=== PATIENT | male | born 1950 | race Caucasian/White ===

== ENCOUNTER → 2019-08-10 | Outpatient (CLI) | payer OTHER ==
--- NOTE | 2019-08-13 11:18 | PE ---
EXAMINATION TYPE: PET CT fusion skull to thigh DATE OF EXAM: 08/10/2019 COMPARISON: Prior outside PET/CT April 16, 2019. HISTORY: Lung cancer diagnosed last year with surgery, recently completed chemotherapy and radiation treatment. TECHNIQUE: Following the intravenous administration of 10.94 mCi of F-18 FDG, whole body images are performed from the skull base to the midthigh. Images are reviewed on the computer in the coronal, a xial, and sagittal planes. Reconstructed rotating images are created on independent workstation and reviewed on the computer. A noncontrast CT is performed in conjunction with the PET scan. SCAN: Subsequent Scan FINDINGS: SKULL BASE AND NECK: No new suspicious areas of abnormal hypermetabolic uptake. CHEST, MEDIASTINUM, AND HILAR REGION: Evidence of right-sided volume loss with posterior area of mass like pleural thickening extending inferiorly anteriorly along the fissure without abnormal suspicious hypermetabolic uptake (Max SUV greater than 2.5), findings favor product of posttreatment change. No suspicious areas of abnormal hypermetabolic uptake. ABDOMEN AND PELVIS: No areas of suspicious abnormal hypermetabolic uptake. No suspicious adrenal mass es. OSSEOUS STRUCTURES: No areas of suspicious abnormal hypermetabolic uptake. OTHER CT: Stable right internal jugular Mediport catheter. Coronary artery calcification redemonstrat ed which is noted marked of underlying coronary artery disease. Small degree of bilateral subareolar nodular gynecomastia redemonstrated. Multilevel spurring in the spine. Mild/moderate calcified plaque of the abdominal aorta extends into branch vessels. Old minimally Fracture of the posterior-lateral right sixth rib is redemonstrated. IMPRESSION: No MRI evidence for active local or metastatic malignancy. Posttreatment changes right renetta ng identified.
== END | disposition home or self-care (01) ==
LOC: RADPETMAIN 13:20
PROVIDERS: ATTEND Physician Assistant
DX: C34.2 Malignant neoplasm of middle lobe, bronchus or lung (principal)
CPT/HCPCS: 78815; A9552

== ENCOUNTER → 2019-11-23 | Outpatient (CLI) | payer OTHER ==
--- NOTE | 2019-11-23 14:52 | PE ---
Nuclear medicine PET/CT HISTORY: Lung carcinoma, subsequent Patient received 12 mCi F-18 FDG intravenously in delayed scanning was performed from the skull base to the mid thighs. Localization and attenuation correction CT scan was performed. Correlation to prior PET/CT 08/10/2019 Chest and neck: There is no supraclavicular or cervical adenopathy. Right jugular central venous cath eter courses into the cavoatrial junction level. Port is present in the right pectoral region. There is no mediastinal, axillary, or hilar adenopathy. Coronary artery calcifications are again seen. No p leural pericardial effusion. Left lung is unremarkable. Some atelectatic lung present along the right middle lobe region similar to prior exam. No suspicious uptake present. Unilateral uptake along the left vocal cord is question, correlate for vocal cord paralysis. Uptake present along the base of the tongue thought likely to be physiologic. ABDOMEN: There is no adrenal mass. No suspicious uptake. No ascites or liver mass is evident. Atherom atous change present along the aorta iliac distribution. Probable postop changes along anterior abdom inal wall are again noted, probable scarring. Possible right inguinal hernia present. No pelvic adeno traci. Osseous structures are stable. IMPRESSION: No suspicious uptake.
== END | disposition home or self-care (01) ==
LOC: RADPETMAIN 07:55
PROVIDERS: ATTEND Physician Assistant
DX: C34.2 Malignant neoplasm of middle lobe, bronchus or lung (principal)
CPT/HCPCS: 78815; A9552

== ENCOUNTER 2020-01-08 00:43 | Inpatient (IN) | payer OTHER, MEDICARE ==
[2020-01-08] MEDS ORDERED: PNEUMONIA PROTOCOL UTILIZED 1 EACH MISC PO PRN (00:52)
[2020-01-08] MEDS ORDERED: IPRATROPIUM-ALBUTEROL 3 ML NEB INHALATION PRN (00:52)
--- NOTE | 2020-01-08 00:57 | ED ---
SOB HPI - General Chief Complaint: Shortness of Breath Stated Complaint: sob Time Seen by Provider: 01/08/20 00:45 Source: patient, EMS, RN notes reviewed, old records reviewed Mode of arrival: EMS Limitations: no limitations - History of Present Illness Initial Comments: This is a 61-year-old male who is accepted in transfer, patient is a knownhistory of high blood pressure, he presented to [facility] shortness of breath and that his been persistent for this patient. Otherwise he is no travel history or sick contacts, he states he was tested negative for coronavirus. No current chest pain. No fevers.patient does have history of lung cancer going through radiation MD Complaint: shortness of breath, cough -: days(s) Radiation: back Severity: moderate Severity scale (1-10): 4 Quality: aching, throbbing Consistency: intermittent Improves With: nothing Worsens With: nothing Known History Of: other (Lung CA) Context: anxiety Associated Symptoms: denies other symptoms - Related Data Home Medications Medication Instructions Recorded Confirmed Acetaminophen Tab [Tylenol Tab] 650 mg PO Q4H PRN MDD 6TABS 12/10/15 12/10/15 Buprenorphine HCl/Naloxone HCl 1 film SL ONCE 12/10/15 12/10/15 [Suboxone 4 mg-1 mg Sl Film] Calcium Carb/Magnesium Hydrox 1 tab PO TID PRN 12/10/15 12/10/15 [Rolaids Chewable Tablet] Chlorpheniramine Maleate 4 mg PO Q4H PRN 12/10/15 12/10/15 [Chlor-Trimeton] LORazepam [Ativan] 1 - 2 mg PO DIRECTED 12/10/15 12/10/15 Multivitamin [Men's Multi-Vitamin] 1 tab PO DAILY 12/10/15 12/10/15 Mylanta 30 ml PO Q4H PRN 12/10/15 12/10/15 Ondansetron HCl [Zofran] 8 mg PO Q6H PRN 12/10/15 12/10/15 Thiamine [Vitamin B-1] 100 mg PO DAILY 12/10/15 12/10/15 Zofran 4mg Im 4 mg IM Q6H PRN 12/10/15 12/10/15 busPIRone HCl [Buspar] 10 mg PO TID PRN 12/10/15 12/10/15 traZODone HCL 50 - 150 mg PO HS 12/10/15 12/10/15 Previous Rx's Medication Instructions Recorded Omeprazole [PriLOSEC] 40 mg PO AC-TERESITAKFST #14 capsule. 12/11/15 traMADol HCL [Ultram] 50 mg PO Q4HR PRN #30 tab 12/11/15 Allergies Allergy/AdvReac Type Severity Reaction Status Date / Time No Known Allergies Allergy Verified 12/11/15 01:08 Review of Systems ROS Statement: Those systems with pertinent positive or pertinent negative responses have been documented in the HPI. ROS Other: All systems not noted in ROS Statement are negative. Past Medical History Past Medical History: Hypertension, Osteoarthritis (OA), Pneumonia, Prostate Disorder Additional Past Medical History / Comment(s): Hep C, Emphysema History of Any Multi-Drug Resistant Organisms: None Reported Past Surgical History: Appendectomy, Tonsillectomy Additional Past Surgical History / Comment(s): fusion rt. tibia-chronic ankle pain, rt. elbow injury repaired Past Anesthesia/Blood Transfusion Reactions: No Reported Reaction Past Psychological History: No Psychological Hx Reported, Bipolar Smoking Status: Former smoker Past Alcohol Use History: None Reported Past Drug Use History: None Reported - Past Family History Mother Family Medical History: Coronary Artery Disease (CAD), Hypertension Father Family Medical History: Cancer Additional Family Medical History / Comment(s): Bone and lung CA Brother(s) Family Medical History: Cancer Additional Family Medical History / Comment(s): pancreatic CA General Exam Limitations: no limitations General appearance: alert, in no apparent distress, anxious Head exam: Present: atraumatic, normocephalic, normal inspection Eye exam: Present: normal appearance, PERRL, EOMI. Absent: scleral icterus, conjunctival injection, periorbital swelling ENT exam: Present: normal exam, mucous membranes moist Neck exam: Present: normal inspection. Absent: tenderness, meningismus, lymphadenopathy Respiratory exam: Present: normal lung sounds bilaterally. Absent: respiratory distress, wheezes, rales, rhonchi, stridor Cardiovascular Exam: Present: regular rate, normal rhythm, normal heart sounds. Absent: systolic murmur, diastolic murmur, rubs, gallop, clicks GI/Abdominal exam: Present: soft, normal bowel sounds. Absent: distended, tenderness, guarding, rebound, rigid Extremities exam: Present: normal inspection, full ROM, normal capillary refill. Absent: tenderness, pedal edema, joint swelling, calf tenderness Back exam: Present: normal inspection Neurological exam: Present: alert, oriented X3, CN II-XII intact Psychiatric exam: Present: normal affect, normal mood Skin exam: Present: warm, dry, intact, normal color. Absent: rash Course Vital Signs 01/08/20 00:46 Temperature 98.2 F Pulse Rate 83 Respiratory 20 Rate Blood Pressure 127/79 O2 Sat by Pulse 95 Oximetry - Reevaluation(s) Reevaluation #1: 01/08/20 01:01 medical records reviewed 01/08/20 01:01 transferring paperwork has been reviewed Reevaluation #2: 01/08/20 01:02 patient is no significant distress currently - Consultations Consultation #1: spoke with [facility] who agrees to admit the patient Medical Decision Making - Medical Decision Making 69 male to the ER for evaluation of shortness of breath patient does have pneumonia/pneumonitis, CTa negative for PE, COVID rapid negative - Radiology Data Radiology results: report reviewed (CTA on an outpatient basis is negative for PE and positive for pneumonia), image reviewed Disposition Clinical Impression: Community acquired pneumonia, Pneumonitis Disposition: ADMITTED IP TO THIS [facility] Condition: Good Is patient prescribed a controlled substance at d/c from ED?: No Referrals: None,Stated [Primary Care Provider] - 1-2 days
[2020-01-08] MEDS ORDERED: MORPHINE SULFATE 4 MG/ML SYRINGE IVP STA (01:04)
[2020-01-08] MEDS: MORPHINE SULFATE 4 MG/ML SYRINGE IVP PRN ×2 (07:31→11:57)
[2020-01-08] MEDS: ENOXAPARIN 40 MG/0.4 ML SYRINGE SQ SCH (07:32)
[2020-01-08] MEDS ORDERED: IPRATROPIUM-ALBUTEROL 3 ML NEB INHALATION SCH (08:00)
[2020-01-08 10:52] LABS: Basophils % (A) 1 %; Eosinophils # (A) 0.1 k/uL (0-0.7); Eosinophils % (A) 1 %; HCT 43.8 % (39.0-53.0); HGB 14.1 gm/dL (13.0-17.5); Lymphocytes % (A) 14 %; MCHC 32.1 g/dL (31.0-37.0); MCV 99.7 fL (80.0-100.0); Mean Platelet Volume 6.3; Monocytes # (A) 0.4 k/uL (0-1.0); Monocytes % (A) 6 %; Neutrophils # (A) 5.2 k/uL (1.3-7.7); Neutrophils % (A) 76 %; Platelet Count 338 k/uL (150-450); RBC 4.39 m/uL (4.30-5.90); RDW 14.2 % (11.5-15.5); WBC 6.8 k/uL (3.8-10.6)
[2020-01-08] MEDS ORDERED: traZODone HCL 100 MG TAB PO PRN (12:26)
[2020-01-08] MEDS: SENNOSIDES 8.6 MG TAB PO SCH ×2 (14:02→19:53)
[2020-01-08] MEDS: HYDROcodone/APAP 10-325MG 1 EACH TAB PO PRN ×2 (14:05→19:52)
[2020-01-08] MEDS: methylPREDNISolone SOD SUCCI 125 MG/2 ML VIAL IV SCH ×2 (14:05→17:11)
[2020-01-08] MEDS ORDERED: NYSTATIN 100,000 UNIT/ML SUSP 500,000 UNIT/5 ML CUP PO PRN (14:42)
[2020-01-08] MEDS ORDERED: polyethylene glycoL 3350 17 GM POWD.PACK PO PRN (14:44)
[2020-01-08 15:10] VITALS: BMI 30.5
[2020-01-08 15:10] LABS: African American GFR (CKD) 89.2 (60.0-200.0); Anion Gap 9.2 mmol/L (4.00-12.00); Calcium 8.8 mg/dL (8.7-10.3); Carbon Dioxide 23.8 mmol/L (21.6-31.8); Potassium 4.1 mmol/L (3.5-5.5)
--- NOTE | 2020-01-08 15:42 | P.HPIM ---
History of Present Illness Patient is 69-year-old the male transferred from outside hospital after a friend present at their with pain in the lower thoracic area where he had the pneumonectomy. Patient does have history of COPD he quit smoking. Patient has radiation to the patient had a computed tomography scan of the chest which she showed what appears like radiation pneumonitis. Patient was told he has pneumonia was sent in here patient was started on Rocephin as the mycin. Patient was evaluated by pulmonary here the start him on high-dose of steroids for possible radiation pneumonitis and patient has musculoskeletal chest pain with he had the pneumonectomy and pneumonectomy scar area is painful for the patient patient the is and opiates that is a fentanyl patch as well as oral pain medications. Doesn't have any fever chills doesn't have any leukocytosis, his Covid 19 was negative. Review of Systems REVIEW OF SYSTEMS: CONSTITUTIONAL: No fever, no malaise, no fatigue. HEENT: No recent visual problems or hearing problems. Denied any sore throat. CARDIOVASCULAR: No orthopnea, PND, no palpitations, no syncope. PULMONARY: no hemoptysis. GASTROINTESTINAL: No diarrhea, no nausea, no vomiting, no abdominal pain. NEUROLOGICAL: No headaches, no weakness, no numbness. HEMATOLOGICAL: Denies any bleeding or petechiae. GENITOURINARY: Denies any burning micturition, frequency, or urgency. MUSCULOSKELETAL/RHEUMATOLOGICAL: Denies any joint pain, swelling, or any muscle pain. ENDOCRINE: Denies any polyuria or polydipsia. The rest of the 14-point review of systems is negative. Past Medical History Past Medical History: Cancer (Lung cancer), Hypertension, Osteoarthritis (OA), Pneumonia, Prostate Disorder Additional Past Medical History / Comment(s): Hep C, Emphysema/COPD, lung CA treated with chemo and radiation therapy through [facility] and the patient completed the radiation in 03/2019 and the patient is still on chemo , l ast treatment was 2 weeks ago History of Any Multi-Drug Resistant Organisms: None Reported Past Surgical History: Appendectomy, Tonsillectomy Additional Past Surgical History / Comment(s): fusion rt. tibia-chronic ankle pain, rt. elbow injury repaired Past Anesthesia/Blood Transfusion Reactions: No Reported Reaction Past Psychological History: No Psychological Hx Reported, Bipolar Smoking Status: Former smoker (quit smoker 3 months ago and the patient has smoked 2 PPD for 50 years) Past Alcohol Use History: None Reported Past Drug Use History: None Reported - Past Family History Mother Family Medical History: Coronary Artery Disease (CAD), Hypertension Father Family Medical History: Cancer Additional Family Medical History / Comment(s): Bone and lung CA Brother(s) Family Medical History: Cancer Additional Family Medical History / Comment(s): pancreatic CA Medications and Allergies Home Medications Medication Instructions Recorded Confirmed Type Albuterol Sulfate [Proair Hfa] 1 puff INHALATION RT-Q6H PRN 01/08/20 01/08/20 History Atorvastatin Calcium [Lipitor] 40 mg PO HS 01/08/20 01/08/20 History Budesonide/Formoterol Fumarate 2 puff INHALATION RT-BID 01/08/20 01/08/20 History [Symbicort 80-4.5 Mcg Inhaler] HYDROcodone/APAP 10-325MG [[place] 1 tab PO Q6H PRN 01/08/20 01/08/20 History 10-325] Lactose-Reduced Food [Ensure Plus] 1 can PO BID 01/08/20 01/08/20 History Nystatin 500,000 unit PO Q6H PRN 01/08/20 01/08/20 History Sennosides [Senna] 17.2 mg PO BID 01/08/20 01/08/20 History Tamsulosin HCl [Flomax] 0.4 mg PO HS 01/08/20 01/08/20 History Tiotropium [place] [Spiriva 2 spray INHALATION RT-DAILY 01/08/20 01/08/20 History Respimat] amLODIPine [Norvasc] 10 mg PO DAILY 01/08/20 01/08/20 History fentaNYL 50MCG/HR PATCH [Duragesic 1 patch TRANSDERM Q72H 01/08/20 01/08/20 History 50MCG/HR] traZODone HCL [Desyrel] 100 mg PO HS PRN 01/08/20 01/08/20 History Allergies Allergy/AdvReac Type Severity Reaction Status Date / Time No Known Allergies Allergy Verified 01/08/20 08:12 Physical Exam Vitals: Vital Signs Temp Pulse Pulse Resp BP BP Pulse Ox 01/08/20 08:45 95 01/08/20 07:00 98.2 F 81 16 126/68 93 L 01/08/20 03:11 19 01/08/20 03:07 97.9 F 85 19 116/72 92 L 01/08/20 01:18 98.3 F 86 19 132/72 94 L 01/08/20 00:46 98.2 F 83 20 127/79 95 Intake and Output 01/08/20 01/08/20 01/08/20 06:59 14:59 22:59 Other: Voiding Method Toilet Weight 88.451 kg 88.451 kg PHYSICAL EXAMINATION: GENERAL: The patient is alert and oriented x3, not in any acute distress. Well developed, well nourished. HEENT: Pupils are round and equally reacting to light. EOMI. No scleral icterus. No conjunctival pallor. Normocephalic, atraumatic. No pharyngeal erythema. No thyromegaly. CARDIOVASCULAR: S1 and S2 present. No murmurs, rubs, or gallops. PULMONARY: Significant axillary wheezing with mildly decreased air entry into bilateral lung hartman. ABDOMEN: Soft, nontender, nondistended, normoactive bowel sounds. No palpable organomegaly. MUSCULOSKELETAL: No joint swelling or deformity. EXTREMITIES: No cyanosis, clubbing, or pedal edema. NEUROLOGICAL: Gross neurological examination did not reveal any focal deficits. SKIN: No rashes. Results CBC & Chem 7: 01/08/20 10:06 01/08/20 10:06 Labs: Abnormal Lab Results - Last 24 Hours (Table) 01/08/20 Range/Units 10:06 Glucose 125 H (70-110) mg/dL Thrombosis Risk Factor Assmnt - Choose All That Apply Each Risk Factor Represents 2 Points: Age 61-74 years, Malignancy Thrombosis Risk Factor Assessment Total Risk Factor Score: 4 Thrombosis Risk Factor Assessment Level: Moderate Risk Assessment and Plan Plan: I1 COPD with acute exacerbation continue systemic steroids inhalational treatments. Patient does have radiation pneumonitis as well as to systemic steroids should help. No evidence of bacterial pneumonia at this time, probably will not require any antibiotics upon discharge. -Lung cancer with radiation pneumonitis patient is status post pneumonectomy. We'll increase the dose of fentanyl patch rest of his pain medications will be continued -Hypertension we'll cut down the dose of amlodipine depending on his blood pressures here. Patient is presently receiving radiation and chemotherapy -Benign prostatic hypertrophy -History of hepatitis C -Hyperlipidemia -Due to prophylaxis with Lovenox and GI prophylaxis Pepcid
[2020-01-08] MEDS ORDERED: HEPARIN SODIUM,PORCINE 5,000 UNIT/ML 1 ML VIAL SQ SCH (16:00)
[2020-01-08] MEDS: IPRATROPIUM-ALBUTEROL 3 ML NEB INHALATION SCH ×2 (16:17→20:23)
--- NOTE | 2020-01-08 17:21 | P.CNPUL ---
History of Present Illness Reason for consult: dyspnea, COPD History of present illness: 69-year-old patient with known history of COPD and lung cancer treated through [facility] the [place]. The patient was referred to us for evaluation of chest and shortness of breath. The patient was not found to be a candidate for surgery. He was given a surgical option and at the time of surgery was found to be nonsurgical. The patient was subsequently treated with chemoradiation therapy. He states that he faces radiation back in March 2019 and he was taking chemotherapy up to recently. I do have a PET scan in our system on this patient and this is a follow-up CAT scan that was unintended 2019 and the PET scan showed no evidence of any mediastinal or hilar lymphadenopathy. The left lung was unremarkable. There was some atelectatic changes in the right midlung similar to prior examination. Nevertheless there was no suspicious uptake within the lungs or liver or abdomen or the skeletal system. The patient clinically seems to be in remission. The patient was having chest pain along the right side of the chest and he went to an outside hospital and the patient was told to have a pneumonia and following that the patient was referred to us for further evaluation. Currently the patient on examination Rocephin and Zithromax. The patient also in any acute COPD exacerbation the patient is currently on DuoNeb the right she is around the clock and IV Solu- Medrol. He apparently has chronic skeletal pain and the patient takes fentanyl patch in addition to no cough or pain control. On today's evaluation he has no fever or chills. No leukocytosis. His coronavirus covert 19 testing came back negative. He is currently on room air oxygen with a pulse of 95%. The patient himself is a poor historian. He admits to smoke. He also admits to have COPD and the patient is demented and accommodation of Symbicort and Spiriva on outpatient basis. Review of Systems Eyes: denies as per HPI, denies blurred vision, denies bulging eye, denies decreased vision, denies diplopia, denies discharge, denies dry eye, denies irritation, denies itching, denies pain, denies photophobia, denies loss of peripheral vision, denies loss of vision, denies tunnel vision/blind spots Ears: deny: decreased hearing, ear discharge, earache, tinnitus Ears, nose, mouth and throat: Denies headache, Denies sore throat Breasts: absent: as per HPI, gynecomastia Cardiovascular: Reports decreased exercise tolerance, Reports dyspnea on exertion Respiratory: Reports as per HPI (lung pain), Reports dyspnea Genitourinary: Reports as per HPI Musculoskeletal: Reports as per HPI Musculoskeletal: absent: ankle pain, ankle stiffness, ankle swelling, as per HPI, elbow pain, elbow stiffness, elbow swelling, foot pain, foot stiffness, foot swelling, hand pain, hand stiffness, hand swelling, hip pain, hip stiffness, hip swelling, knee pain, knee stiffness, knee swelling, shoulder pain, shoulder stiffness, shoulder swelling, wrist pain, wrist stiffness, wrist swelling Integumentary: Reports as per HPI Neurological: Reports as per HPI Psychiatric: Reports as per HPI Endocrine: Reports as per HPI Hematologic/Lymphatic: Reports as per HPI Allergic/Immunologic: Reports as per HPI Past Medical History Past Medical History: Cancer (Lung cancer), Hypertension, Osteoarthritis (OA), Pneumonia, Prostate Disorder Additional Past Medical History / Comment(s): Hep C, Emphysema/COPD, lung CA treated with chemo and radiation therapy through [facility] and the patient completed the radiation in 03/2019 and the patient is still on chemo , last treatment was 2 weeks ago History of Any Multi-Drug Resistant Organisms: None Reported Past Surgical History: Appendectomy, Tonsillectomy Additional Past Surgical History / Comment(s): fusion rt. tibia-chronic ankle pain, rt. elbow injury repaired Past Anesthesia/Blood Transfusion Reactions: No Reported Reaction Past Psychological History: No Psychological Hx Reported, Bipolar Smoking Status: Former smoker (quit smoker 3 months ago and the patient has smoked 2 PPD for 50 years) Past Alcohol Use History: None Reported Past Drug Use History: None Reported - Past Family History Mother Family Medical History: Coronary Artery Disease (CAD), Hypertension Father Family Medical History: Cancer Additional Family Medical History / Comment(s): Bone and lung CA Brother(s) Family Medical History: Cancer Additional Family Medical History / Comment(s): pancreatic CA Medications and Allergies Home Medications Medication Instructions Recorded Confirmed Type Albuterol Sulfate [Proair Hfa] 1 puff INHALATION RT-Q6H PRN 01/08/20 01/08/20 History Atorvastatin Calcium [Lipitor] 40 mg PO HS 01/08/20 01/08/20 History Budesonide/Formoterol Fumarate 2 puff INHALATION RT-BID 01/08/20 01/08/20 History [Symbicort 80-4.5 Mcg Inhaler] HYDROcodone/APAP 10-325MG [[place] 1 tab PO Q6H PRN 01/08/20 01/08/20 History 10-325] Lactose-Reduced Food [Ensure Plus] 1 can PO BID 01/08/20 01/08/20 History Nystatin 500,000 unit PO Q6H PRN 01/08/20 01/08/20 History Sennosides [Senna] 17.2 mg PO BID 01/08/20 01/08/20 History Tamsulosin HCl [Flomax] 0.4 mg PO HS 01/08/20 01/08/20 History Tiotropium [place] [Spiriva 2 spray INHALATION RT-DAILY 01/08/20 01/08/20 History Respimat] amLODIPine [Norvasc] 10 mg PO DAILY 01/08/20 01/08/20 History fentaNYL 50MCG/HR PATCH [[place] 1 patch TRANSDERM Q72H 01/08/20 01/08/20 History 50MCG/HR] traZODone HCL [Desyrel] 100 mg PO HS PRN 01/08/20 01/08/20 History Allergies Allergy/AdvReac Type Severity Reaction Status Date / Time No Known Allergies Allergy Verified 01/08/20 08:12 Physical Exam Vitals: Vital Signs Temp Pulse Pulse Resp BP BP Pulse Ox 01/08/20 08:45 95 01/08/20 07:00 98.2 F 81 16 126/68 93 L 01/08/20 03:11 19 01/08/20 03:07 97.9 F 85 19 116/72 92 L 01/08/20 01:18 98.3 F 86 19 132/72 94 L 01/08/20 00:46 98.2 F 83 20 127/79 95 Intake and Output 01/07/20 01/08/20 01/08/20 22:59 06:59 14:59 Other: Voiding Method Toilet Weight 88.451 kg GENERAL: The patient is alert and oriented x3, not in any acute distress. Well developed, well nourished. HEENT: Pupils are round and equally reacting to light. EOMI. No scleral icterus. No conjunctival pallor. Normocephalic, atraumatic. No pharyngeal erythema. No thyromegaly. CARDIOVASCULAR: S1 and S2 present. No murmurs, rubs, or gallops. PULMONARY: Significant axillary wheezing with mildly decreased air entry into bilateral lung hartman. ABDOMEN: Soft, nontender, nondistended, normoactive bowel sounds. No palpable organomegaly. MUSCULOSKELETAL: No joint swelling or deformity. EXTREMITIES: No cyanosis, clubbing, or pedal edema. NEUROLOGICAL: Gross neurological examination did not reveal any focal deficits. Examination of the skin revealed no evidence of significant rashes, suspicious appearing nevi or other concerning lesions. Results - Laboratory Findings CBC and BMP: 01/08/20 10:06 01/08/20 10:06 Assessment and Plan Plan: Assessment 1 acute COPD exacerbation with secondary shortness of breath 2 history of lung cancer exact type and the exact diagnostic and therapeutic circumstances not known to be at this point. The patient was treated with accommodation of chemoradiation therapy. Note that the most recent PET scan that was done November 2019 showed no evidence of any recurrence or active disease of the patient had no abnormalities or increased uptake within the PET scan finding. 3 right lung chronic atelectatic change, probably related to radiation-induced changes to the lungs 4 hypertension 5 previous history of hepatitis C, treated 6 hyperlipidemia 7 smoker 8 BPH 9 chronic pain syndrome and the patient is demented on fentanyl patches on outpatient basis. He claims that this was given to him following his radiation. Plan Obtain records regarding his previous treatment of lung cancer Obtain copies of the CAT scan of the chest that was done outside hospital in upload in our system Repeat chest x-ray Continue Rocephin and Zithromax DuoNeb nebulized treatments around the clock IV Solu Medrol 60 mg every 6 hours Restart the patient is fentanyl usual dose 75 mg every 72 hours in addition to [place] 10 mg every 6 hours on a when necessary basis. Resume home medication We'll continue to follow
[2020-01-08] MEDS: TAMSULOSIN 0.4 MG CAP.ER.24H PO SCH (19:53)
[2020-01-08] MEDS: FAMOTIDINE 20 MG TAB PO SCH (19:53)
[2020-01-08] MEDS: ATORVASTATIN 40 MG TAB PO SCH (19:53)
[2020-01-08] MEDS: BUDESONIDE 0.5 MG/2 ML NEBU INHALATION SCH (20:23)
[2020-01-08] MEDS: FORMOTEROL FUMARATE 20 MCG/2 ML NEBU INHALATION SCH ×2 (20:23→20:30)
[2020-01-09] MEDS: methylPREDNISolone SOD SUCCI 125 MG/2 ML VIAL IV SCH ×4 (00:05→17:10)
[2020-01-09] MEDS: AZITHROMYCIN 500 MG TAB PO SCH (00:06)
--- NOTE | 2020-01-09 07:19 | XR ---
EXAMINATION TYPE: XR chest 2V DATE OF EXAM: 01/09/2020 HISTORY: Shortness of breath. COMPARISON: 12/10/2015 TECHNIQUE: Single view of the chest is submitted. FINDINGS: Demonstrated are scattered senescent parenchymal change. Right perihilar and right lower lobe infiltrate. Correlate clinically for pneumonia and progress stud ies are recommended. The heart is stable. Hilar and mediastinal structures are within normal limits. Degenerative changes are seen of the dorsal spine. IMPRESSION: 1. Right perihilar and right lower lobe infiltrate. Correlate clinically for pneumonia and progress studies are recommended.
[2020-01-09] MEDS: HYDROcodone/APAP 10-325MG 1 EACH TAB PO PRN ×3 (07:24→19:41)
[2020-01-09] MEDS ORDERED: amLODIPine 10 MG TAB PO SCH (09:00)
[2020-01-09] MEDS: SENNOSIDES 8.6 MG TAB PO SCH ×2 (09:05→21:02)
[2020-01-09] MEDS: FAMOTIDINE 20 MG TAB PO SCH ×2 (09:05→21:02)
[2020-01-09] MEDS: ENOXAPARIN 40 MG/0.4 ML SYRINGE SQ SCH (09:07)
[2020-01-09] MEDS: amLODIPine 5 MG TAB PO SCH (09:08)
[2020-01-09] MEDS: IPRATROPIUM-ALBUTEROL 3 ML NEB INHALATION SCH ×4 (09:29→20:23)
[2020-01-09] MEDS: FORMOTEROL FUMARATE 20 MCG/2 ML NEBU INHALATION SCH ×2 (09:29→20:35)
[2020-01-09] MEDS: BUDESONIDE 0.5 MG/2 ML NEBU INHALATION SCH ×2 (09:30→20:23)
--- NOTE | 2020-01-09 15:25 | P.PN ---
Subjective 69-year-old the male transferred from outside hospital after a friend present at their with pain in the lower thoracic area where he had the pneumonectomy. Patient does have history of COPD he quit smoking. Patient has radiation to the patient had a computed tomography scan of the chest which she showed what appears like radiation pneumonitis. Patient was told he has pneumonia was sent in here patient was started on Rocephin as the mycin. Patient was evaluated by pulmonary here the start him on high-dose of steroids for possible radiation pneumonitis and patient has musculoskeletal chest pain with he had the pneumonectomy and pneumonectomy scar area is painful for the patient patient the is and opiates that is a fentanyl patch as well as oral pain medications. Doesn't have any fever chills doesn't have any leukocytosis, his Covid 19 was negative. 01/09 2020 Patient chest x-ray showing perihilar infiltrate this chest x-ray was done today. Patient feels better in his wheezing significantly improved Constitutional: Denied any fatigue denied any fever. Cardio vascular: denied any chest pain, palpitations Gastrointestinal denied any nausea vomiting Pulmonary: As mentioned in interval history. Neurologic denied any new focal deficits All inpatient medications were reviewed and appropriate changes in these medications as dictated in the interval history and assessment and plan. Objective - Vital Signs Vital signs: Vital Signs Temp 99.0 F 01/09/20 15:00 Pulse 76 01/09/20 15:00 Resp 17 01/09/20 15:00 BP 125/65 01/09/20 15:00 Pulse Ox 97 01/09/20 15:00 Intake & Output 01/08/20 01/09/20 01/09/20 18:59 06:59 18:59 Weight 88.451 kg Other: Voiding Method Toilet Toilet Toilet # Voids 4 2 - Exam PHYSICAL EXAMINATION: GENERAL: The patient is alert and oriented x3, not in any acute distress. Well developed, well nourished. HEENT: Pupils are round and equally reacting to light. EOMI. No scleral icterus. No conjunctival pallor. Normocephalic, atraumatic. No pharyngeal erythema. No thyromegaly. CARDIOVASCULAR: S1 and S2 present. No murmurs, rubs, or gallops. PULMONARY: Wheezing significantly improved mild bilateral rhonchi and exam ABDOMEN: Soft, nontender, nondistended, normoactive bowel sounds. No palpable organomegaly. MUSCULOSKELETAL: No joint swelling or deformity. EXTREMITIES: No cyanosis, clubbing, or pedal edema. NEUROLOGICAL: Gross neurological examination did not reveal any focal deficits. SKIN: No rashes. - Labs CBC & Chem 7: 01/08/20 10:06 01/08/20 10:06 Assessment and Plan Plan: I1 COPD with acute exacerbation continue systemic steroids inhalational yonathan tments. Patient does have radiation pneumonitis as well as to systemic steroids should help. Patient has a right lower lobe infiltrate patient is on already on antibiotics will continue possibly of discharge tomorrow -Lung cancer with radiation pneumonitis patient is status post pneumonectomy. controlled today. -Hypertension we'll cut down the dose of amlodipine depending on his blood pre ssures here. Patient is presently receiving radiation and chemotherapy -Benign prostatic hypertrophy -History of hepatitis C -Hyperlipidemia -Due to prophylaxis with Lovenox and GI prophylaxis Pepcid
--- NOTE | 2020-01-09 15:39 | P.PN ---
Subjective Progress Note Date: 01/09/20 Principal diagnosis: Chest pain, shortness of breath 69-year-old patient with known history of COPD and lung cancer treated through [facility] the [place] in [place]. The patient was referred to us for evaluation of chest and shortness of breath. The patient was not found to be a candidate for surgery. He was given a surgical option and at the time of surgery was found to be nonsurgical. The patient was subsequently treated with chemoradiation therapy. He states that he faces radiation back in March 2019 and he was taking chemotherapy up to recently. I do have a PET scan in our system on this patient and this is a follow-up CAT scan that was unintended 2019 and the PET scan showed no evidence of any mediastinal or hilar lymphadenopathy. The left lung was unremarkable. There was some atelectatic changes in the right midlung similar to prior examination. Nevertheless there was no suspicious uptake within the lungs or liver or abdomen or the skeletal system. The patient clinically seems to be in remission. The patient was having chest pain along the right side of the chest and he went to an outside hospital and the patient was told to have a pneumonia and following that the patient was referred to us for further evaluation. Currently the patient on examination Rocephin and Zithromax. The patient also in any acute COPD exacerbation the patient is currently on DuoNeb the right she is around the clock and IV Solu- Medrol. He apparently has chronic skeletal pain and the patient takes fentanyl patch in addition to no cough or pain control. On today's evaluation he has no fever or chills. No leukocytosis. His coronavirus covert 19 testing came back negative. He is currently on room air oxygen with a pulse of 95%. The patient himself is a poor historian. He admits to smoke. He also admits to have COPD and the patient is demented and accommodation of Symbicort and Spiriva on outpatient basis. On 01/09/2020 patient is seen in follow-up on medical surgical floor, he is awake and alert, in no acute distress, denies any shortness of breath, she states his breathing has improved, he is on room air with a pulse ox 97%, he's been afebrile, lung sounds are clear, no rhonchi or wheezing, he states he still has the flank pain, he is on fentanyl patch 75 mics, and oral [place] as. He is on azithromycin and Rocephin for possibility of pulmonary infection, and today's chest x-ray shows right perihilar and right lower lobe infiltrate. His covert 19 testing is being repeated currently. Clinically he looks very stable, he is tolerating ambulation in the room, no complaints of central chest pain, no hemoptysis. No wheezing Objective - Vital Signs Vital signs: Vital Signs Temp 99.0 F 01/09/20 15:00 Pulse 76 01/09/20 15:00 Resp 17 01/09/20 15:00 BP 125/65 01/09/20 15:00 Pulse Ox 97 01/09/20 15:00 Intake & Output 01/08/20 01/09/20 01/09/20 18:59 06:59 18:59 Intake Total 540 Balance 540 Weight 88.451 kg Intake: Oral 540 Other: Voiding Method Toilet Toilet Toilet # Voids 4 2 2 - Exam GENERAL EXAM: Alert, very pleasant, 69-year-old white male, on room air, with a pulse ox 97%, comfortable in no apparent distress. HEAD: Normocephalic/atraumatic. EYES: Normal reaction of pupils, equal size. Conjunctiva pink, sclera white. NOSE: Clear with pink turbinates. THROAT: No erythema or exudates. NECK: No masses, no JVD, no thyroid enlargement, no adenopathy. CHEST: No chest wall deformity. Symmetrical expansion. LUNGS: Equal air entry with no crackles, wheeze, rhonchi or dullness. CVS: Regular rate and rhythm, normal S1 and S2, no gallops, no murmurs, no rubs ABDOMEN: Soft, nontender. No hepatosplenomegaly, normal bowel sounds, no guarding or rigidity. EXTREMITIES: No clubbing, no edema, no cyanosis, 2+ pulses and upper and lower extremities. MUSCULOSKELETAL: Muscle strength and tone normal. SPINE: No scoliosis or deformity SKIN: No rashes CENTRAL NERVOUS SYSTEM: Alert and oriented -3. No focal deficits, tone is normal in all 4 extremities. PSYCHIATRIC: Alert and oriented -3. Appropriate affect. Intact judgment and insight. - Labs CBC & Chem 7: 01/08/20 10:06 01/08/20 10:06 Assessment and Plan Plan: Assessment: 1 acute COPD exacerbation with secondary shortness of breath 2 history of lung cancer exact type and the exact diagnostic and therapeutic circumstances not known to be at this point. The patient was treated with accommodation of chemoradiation therapy. Note that the most recent PET scan that was done November 2019 showed no evidence of any recurrence or active disease of the patient had no abnormalities or increased uptake within the PET scan finding. 3 right lung chronic atelectatic change, probably related to radiation-induced changes to the lungs 4 hypertension 5 previous history of hepatitis C, treated 6 hyperlipidemia 7 smoker 8 BPH 9 chronic pain syndrome and the patient is demented on fentanyl patches on outpatient basis. He claims that this was given to him following his radiation. Plan: Continue current medical treatment, patient clinically is stable, no fever or chills, his shortness of breath has improved, lisinopril calcitonin, Covid 19 PCR is pending, continue IV steroids, we'll continue to follow I performed a history & physical examination of the patient and discussed their management with my nurse practitioner, Jenny De Los Santos. I reviewed the nurse practitioner's note and agree with the documented findings and plan of care. Lung sounds are positive for diminished breath sounds. The findings and the impression was discussed with the patient. I attest to the documentation by the nurse practitioner. Time with Patient: Less than 30
[2020-01-09] MEDS: TAMSULOSIN 0.4 MG CAP.ER.24H PO SCH (21:02)
[2020-01-09] MEDS: ATORVASTATIN 40 MG TAB PO SCH (21:02)
[2020-01-10] MEDS: AZITHROMYCIN 500 MG TAB PO SCH (00:05)
[2020-01-10] MEDS: methylPREDNISolone SOD SUCCI 125 MG/2 ML VIAL IV SCH ×3 (00:05→12:23)
[2020-01-10 03:17] VITALS: RESP 16
[2020-01-10] MEDS: HYDROcodone/APAP 10-325MG 1 EACH TAB PO PRN ×2 (05:44→12:36)
[2020-01-10 07:37] VITALS: BP 133/74; TEMP 97.3
[2020-01-10] MEDS: IPRATROPIUM-ALBUTEROL 3 ML NEB INHALATION SCH ×2 (08:52→12:40)
[2020-01-10] MEDS: FORMOTEROL FUMARATE 20 MCG/2 ML NEBU INHALATION SCH (08:52)
[2020-01-10] MEDS: BUDESONIDE 0.5 MG/2 ML NEBU INHALATION SCH (08:52)
[2020-01-10 08:57] VITALS: PULSE 80
[2020-01-10] MEDS: ENOXAPARIN 40 MG/0.4 ML SYRINGE SQ SCH (10:22)
[2020-01-10] MEDS: FAMOTIDINE 20 MG TAB PO SCH (10:22)
[2020-01-10] MEDS: amLODIPine 5 MG TAB PO SCH (10:22)
[2020-01-10] MEDS: SENNOSIDES 8.6 MG TAB PO SCH (10:23)
--- NOTE | 2020-01-10 14:24 | P.DS ---
Providers Date of admission: 01/08/20 00:52 Attending physician: Merrill Gonzales Consults: 01/08/20 00:52 Consult Physician Routine Consulting Provider: Korey Vazquez Consult Reason/Comments: pna Do you want consulting provider notified?: Yes Primary care physician: Stated None Hospital Course: 69-year-old the male transferred from outside hospital after a friend present at their with pain in the lower thoracic area where he had the pneumonectomy. Patient does have history of COPD he quit smoking. Patient has radiation to the patient had a computed tomography scan of the chest which she showed what appears like radiation pneumonitis. Patient was told he has pneumonia was sent in here patient was started on Rocephin as the mycin. Patient was evaluated by pulmonary here the start him on high-dose of steroids for possible radiation pneumonitis and patient has musculoskeletal chest pain with he had the pneumonectomy and pneumonectomy scar area is painful for the patient patient the is and opiates that is a fentanyl patch as well as oral pain medications. Doesn't have any fever chills doesn't have any leukocytosis, his Covid 19 was negative. 01/09 2020 Patient chest x-ray showing perihilar infiltrate this chest x-ray was done today. Patient feels better in his wheezing significantly improved 01/10/2020 Patient did wheezing almost completely resolved does sound pretty good. Patient will be discharged today PHYSICAL EXAMINATION: GENERAL: The patient is alert and oriented x3, not in any acute distress. Well developed, well nourished. HEENT: Pupils are round and equally reacting to light. EOMI. No scleral icterus. No conjunctival pallor. Normocephalic, atraumatic. No pharyngeal erythema. No thyromegaly. CARDIOVASCULAR: S1 and S2 present. No murmurs, rubs, or gallops. PULMONARY: Wheezing significantly improved mild bilateral rhonchi and exam ABDOMEN: Soft, nontender, nondistended, normoactive bowel sounds. No palpable organomegaly. MUSCULOSKELETAL: No joint swelling or deformity. EXTREMITIES: No cyanosis, clubbing, or pedal edema. NEUROLOGICAL: Gross neurological examination did not reveal any focal deficits. SKIN: No rashes. Assessment and Plan Plan: - COPD with acute exacerbation -Radiation-induced pneumonitis of the Bactrim pneumonia cannot be completely ruled out -Lung cancer with radiation pneumonitis patient is status post pneumonectomy. -Hypertension -Benign prostatic hypertrophy -History of hepatitis C -Hyperlipidemia Patient Condition at Discharge: Good Plan - Discharge Summary Discharge Rx Participant: Yes New Discharge Prescriptions: New Cefuroxime Axetil [Ceftin] 500 mg PO BID 4 Days #8 tab fentaNYL 75MCG/HR PATCH [Duragesic 75MCG/HR] 1 patch TRANSDERM Q72H #3 patch Famotidine [Pepcid] 20 mg PO BID #30 tablet predniSONE 10 mg PO DAILY #30 tab Continue amLODIPine [Norvasc] 10 mg PO DAILY Tiotropium [place] [Spiriva Respimat] 2 spray INHALATION RT-DAILY Tamsulosin HCl [Flomax] 0.4 mg PO HS Sennosides [Senna] 17.2 mg PO BID Nystatin 500,000 unit PO Q6H PRN PRN Reason: THRUSH Lactose-Reduced Food [Ensure Plus] 1 can PO BID traZODone HCL [Desyrel] 100 mg PO HS PRN PRN Reason: SLEEP HYDROcodone/APAP 10-325MG [Crosby 10-325] 1 tab PO Q6H PRN PRN Reason: Pain Budesonide/Formoterol Fumarate [Symbicort 80-4.5 Mcg Inhaler] 2 puff INHALATION RT-BID Atorvastatin Calcium [Lipitor] 40 mg PO HS Albuterol Sulfate [Proair Hfa] 1 puff INHALATION RT-Q6H PRN PRN Reason: Shortness Of Breath Discontinued fentaNYL 50MCG/HR PATCH [Duragesic 50MCG/HR] 1 patch TRANSDERM Q72H Discharge Medication List Albuterol Sulfate [Proair Hfa] 1 puff INHALATION RT-Q6H PRN 01/08/20 [History] Atorvastatin Calcium [Lipitor] 40 mg PO HS 01/08/20 [History] Budesonide/Formoterol Fumarate [Symbicort 80-4.5 Mcg Inhaler] 2 puff INHALATION RT-BID 01/08/20 [History] HYDROcodone/APAP 10-325MG [Crosby 10-325] 1 tab PO Q6H PRN 01/08/20 [History] Lactose-Reduced Food [Ensure Plus] 1 can PO BID 01/08/20 [History] Nystatin 500,000 unit PO Q6H PRN 01/08/20 [History] Sennosides [Senna] 17.2 mg PO BID 01/08/20 [History] Tamsulosin HCl [Flomax] 0.4 mg PO HS 01/08/20 [History] Tiotropium Breeden [Spiriva Respimat] 2 spray INHALATION RT-DAILY 01/08/20 [History] amLODIPine [Norvasc] 10 mg PO DAILY 01/08/20 [History] traZODone HCL [Desyrel] 100 mg PO HS PRN 01/08/20 [History] Cefuroxime Axetil [Ceftin] 500 mg PO BID 4 Days #8 tab 01/10/20 [Rx] Famotidine [Pepcid] 20 mg PO BID #30 tablet 01/10/20 [Rx] fentaNYL 75MCG/HR PATCH [Duragesic 75MCG/HR] 1 patch TRANSDERM Q72H #3 patch 01/10/20 [Rx] predniSONE 10 mg PO DAILY #30 tab 01/10/20 [Rx] Follow up Appointment(s)/Referral(s): None,Stated [Primary Care Provider] - 1-2 days Patient Instructions/Handouts: Pneumonitis (DC) Discharge Disposition: HOME SELF-CARE
--- NOTE | 2020-01-10 15:18 | P.PN ---
Subjective Progress Note Date: 01/10/20 Principal diagnosis: Chest pain, shortness of breath 69-year-old patient with known history of COPD and lung cancer treated through [facility] the [place] in [place]. The patient was referred to us for evaluation of chest and shortness of breath. The patient was not found to be a candidate for surgery. He was given a surgical option and at the time of surgery was found to be nonsurgical. The patient was subsequently treated with chemoradiation therapy. He states that he faces radiation back in March 2019 and he was taking chemotherapy up to recently. I do have a PET scan in our system on this patient and this is a follow-up CAT scan that was unintended 2019 and the PET scan showed no evidence of any mediastinal or hilar lymphadenopathy. The left lung was unremarkable. There was some atelectatic changes in the right midlung similar to prior examination. Nevertheless there was no suspicious uptake within the lungs or liver or abdomen or the skeletal system. The patient clinically seems to be in remission. The patient was having chest pain along the right side of the chest and he went to an outside hospital and the patient was told to have a pneumonia and following that the patient was referred to us for further evaluation. Currently the patient on examination Rocephin and Zithromax. The patient also in any acute COPD exacerbation the patient is currently on DuoNeb the right she is around the clock and IV Solu- Medrol. He apparently has chronic skeletal pain and the patient takes fentanyl patch in addition to no cough or pain control. On today's evaluation he has no fever or chills. No leukocytosis. His coronavirus covert 19 testing came back negative. He is currently on room air oxygen with a pulse of 95%. The patient himself is a poor historian. He admits to smoke. He also admits to have COPD and the patient is demented and accommodation of Symbicort and Spiriva on outpatient basis. On 01/09/2020 patient is seen in follow-up on medical surgical floor, he is awake and alert, in no acute distress, denies any shortness of breath, she states his breathing has improved, he is on room air with a pulse ox 97%, he's been afebrile, lung sounds are clear, no rhonchi or wheezing, he states he still has the flank pain, he is on fentanyl patch 75 mics, and oral [place] as. He is on azithromycin and Rocephin for possibility of pulmonary infection, and today's chest x-ray shows right perihilar and right lower lobe infiltrate. His covert 19 testing is being repeated currently. Clinically he looks very stable, he is tolerating ambulation in the room, no complaints of central chest pain, no hemoptysis. No wheezing On 01/10/2020 patient seen in follow-up on medical surgical floor. Difficulty breathing, no cough or congestion, no fever overnight. He is on room air, with a pulse ox 94%, respirations are nonlabored, he is on empiric antibiotics, is on steroids, breathing treatments, no cough or congestion, patient has been cleared for discharge home today Objective - Vital Signs Vital signs: Vital Signs Temp 97.3 F L 01/10/20 07:33 Pulse 80 01/10/20 09:16 Resp 16 01/10/20 10:39 BP 133/74 01/10/20 07:33 Pulse Ox 94 L 01/10/20 03:17 Intake & Output 01/09/20 01/10/20 01/10/20 18:59 06:59 18:59 Intake Total 540 Balance 540 Intake: Oral 540 Other: Voiding Method Toilet Toilet Toilet # Voids 2 2 - Exam GENERAL EXAM: Alert, very pleasant, 69-year-old white male, on room air, with a pulse ox 97%, comfortable in no apparent distress. HEAD: Normocephalic/atraumatic. EYES: Normal reaction of pupils, equal size. Conjunctiva pink, sclera white. NOSE: Clear with pink turbinates. THROAT: No erythema or exudates. NECK: No masses, no JVD, no thyroid enlargement, no adenopathy. CHEST: No chest wall deformity. Symmetrical expansion. LUNGS: Equal air entry with no crackles, wheeze, rhonchi or dullness. CVS: Regular rate and rhythm, normal S1 and S2, no gallops, no murmurs, no rubs ABDOMEN: Soft, nontender. No hepatosplenomegaly, normal bowel sounds, no guarding or rigidity. EXTREMITIES: No clubbing, no edema, no cyanosis, 2+ pulses and upper and lower extremities. MUSCULOSKELETAL: Muscle strength and tone normal. SPINE: No scoliosis or deformity SKIN: No rashes CENTRAL NERVOUS SYSTEM: Alert and oriented -3. No focal deficits, tone is normal in all 4 extremities. PSYCHIATRIC: Alert and oriented -3. Appropriate affect. Intact judgment and insight. - Labs CBC & Chem 7: 01/08/20 10:06 01/08/20 10:06 Assessment and Plan Plan: Assessment: 1 acute COPD exacerbation with secondary shortness of breath 2 history of lung cancer exact type and the exact diagnostic and therapeutic circumstances not known to be at this point. The patient was treated with accommodation of chemoradiation therapy. Note that the most recent PET scan that was done November 2019 showed no evidence of any recurrence or active disease of the patient had no abnormalities or increased uptake within the PET scan finding. 3 right lung chronic atelectatic change, probably related to radiation-induced changes to the lungs 4 hypertension 5 previous history of hepatitis C, treated 6 hyperlipidemia 7 smoker 8 BPH 9 chronic pain syndrome and the patient is demented on fentanyl patches on outpatient basis. He claims that this was given to him following his radiation. Plan: Procalcitonin level was negative, we will discontinue the antibiotics, patient is stable from pulmonary perspective, no cough, no congestion no shortness of breath, he is on room air, no acute events overnight, awaiting discharge home today I performed a history & physical examination of the patient and discussed their management with my nurse practitioner, Jenny De Los Santos. I reviewed the nurse practitioner's note and agree with the documented findings and plan of care. Lung sounds are positive for diminished breath sounds. The findings and the impression was discussed with the patient. I attest to the documentation by the nurse practitioner. Time with Patient: Less than 30
== END 2020-01-10 14:15 | disposition home or self-care (01) | DRG 206 ==
LOC: EC 00:43 → 4SSUR 00:52
PROVIDERS: ADMIT Hospitalist; ATTEND Hospitalist
DX: J70.0 Acute pulmonary manifestations due to radiation (principal); C34.90 Malignant neoplasm of unspecified part of unspecified bronchus or lung; F03.90 Unspecified dementia, unspecified severity, without behavioral disturbance, psychotic disturbance, mood disturbance, and anxiety; E78.5 Hyperlipidemia, unspecified; J43.9 Emphysema, unspecified; F31.9 Bipolar disorder, unspecified; Z20.828 Contact with and (suspected) exposure to other viral communicable diseases; G89.4 Chronic pain syndrome; I10 Essential (primary) hypertension; N40.0 Benign prostatic hyperplasia without lower urinary tract symptoms; F41.9 Anxiety disorder, unspecified; M25.521 Pain in right elbow; M25.571 Pain in right ankle and joints of right foot; M19.90 Unspecified osteoarthritis, unspecified site; Z79.51 Long term (current) use of inhaled steroids; Z79.891 Long term (current) use of opiate analgesic; Z79.899 Other long term (current) drug therapy; Z86.19 Personal history of other infectious and parasitic diseases; Z90.2 Acquired absence of lung [part of]; Z90.49 Acquired absence of other specified parts of digestive tract; Z90.89 Acquired absence of other organs; Z87.19 Personal history of other diseases of the digestive system; Z98.1 Arthrodesis status; Z87.39 Personal history of other diseases of the musculoskeletal system and connective tissue; Z98.890 Other specified postprocedural states; Y84.2 Radiological procedure and radiotherapy as the cause of abnormal reaction of the patient, or of later complication, without mention of misadventure at the time of the procedure; Z82.49 Family history of ischemic heart disease and other diseases of the circulatory system; Z80.1 Family history of malignant neoplasm of trachea, bronchus and lung; Z80.0 Family history of malignant neoplasm of digestive organs
CPT/HCPCS: 71046; 80048; 84145; 85025; 94640; 94760; 99285